=== PATIENT | female | born 1995 | race Asian ===

== ENCOUNTER 2017-11-19 16:50 | Emergency (ER) | payer OTHER ==
[2017-11-19] MEDS ORDERED: METOCLOPRAMIDE 10 MG/2 ML VIAL IVP ONE (17:18)
[2017-11-19] MEDS ORDERED: KETOROLAC 15 MG/1 ML SDV IVP ONE (17:18)
[2017-11-19] MEDS ORDERED: NS 1,000 ML IV ONE (17:18)
--- NOTE | 2017-11-19 17:20 | EDPHY ---
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 She reports that the headache started with mild nausea and then developed into headache. Onset of headache was gradual and has been fluctuating on and off for the last 6 days. She has no history of aneurysms. There was no trauma. She has no fever. She denies any neck pain or confusion or numbness or weakness or vision changes. She does report feeling slightly dizzy and endorses photophobia and phonophobia. She denies any abdominal pain or URI symptoms. She does report that approximately 3 years ago she experienced multiple headaches and her mother gave her Mexican traditional herbal medication and told her that she was anemic but she never did did see doctor about this or a neurologist. These headaches resolved and then approximately 2 years ago she had 2 head injuries and suffered from headaches for approximately a year after this but once again never saw a doctor. Her last migraine type headache was in December this year and self- resolved with Motrin. She takes no prescribed medication. She denies any drug use. She denies . REVIEW OF SYSTEMS: Constitutional: No fever, no chills. Eyes: No discharge. ENT: No sore throat. Cardiovascular: No chest pain, no palpitations. Respiratory: No cough, no shortness of breath. Gastrointestinal: No abdominal pain, no vomiting. Genitourinary: No hematuria. Musculoskeletal: No back pain. Skin: No rashes. Neurological: + headache. Smoking Status: Never smoked Physical Exam: General Appearance: Alert and no distress. Eyes: Pupils equal and round no injection. Respiratory: Chest is nontender, lungs are clear to auscultation. Cardiac: regular rate and rhythm. Gastrointestinal: Abdomen is soft and nontender, no masses, bowel sounds normal. Musculoskeletal: Neck is supple and nontender. Extremities have full range of motion and are nontender. Skin: No rashes or lesions. Neuro: Alert and oriented. No meningeal signs. Cranial nerves grossly intact. Ambulatory and moving all 4 extremities Constitutional: Initial Vital Signs Temperature (C) 36.7 C 11/19/17 16:53 Heart Rate 84 11/19/17 16:53 Respiratory Rate 18 11/19/17 16:53 Blood Pressure 124/78 H 11/19/17 16:53 O2 Sat (%) 97 11/19/17 16:53 O2 Delivery Mode Room Air Allergies/Adverse Reactions: No Known Allergies Allergy (Unverified 11/19/17 16:53) Home Medications: Medication Instructions Recorded NK [No Known Home Meds] 11/19/17 Medical Decision Making ED Course/Re-evaluation: 22-year-old female here with headache for the last 6 days. She does have extensive history of headaches including migraine type headache 3 years ago and a year of on and off headaches following a head injury 2 years ago. On exam today she is afebrile nontoxic. In is alert and oriented. She has no neurologic deficits. Labs reveal anemia which is secondary to her known thalassemia trait. Is no electrolyte disturbance or other acute findings on her labs today. She feels improved after IV migraine cocktail. She was referred to primary care doctor for further management of her anemia and migraines. I did consider subarachnoid hemorrhage, intracranial bleed, mass, acute anemia, trigeminal neuralgia, encephalitis - Data Points Laboratory Results: Laboratory Results 11/19/17 17:28 11/19/17 17:28 11/19/17 11/19/17 17:28 17:28 WBC 8.63 10^3/uL 10^3/uL (3.80-9.50) RBC 5.37 10^6/uL H 10^6/uL (4.18-5.33) Hgb 11.2 g/dL L g/dL (12.6-16.3) Hct 35.6 % L % (38.0-47.0) MCV 66.3 fL L fL (81.5-99.8) MCH 20.9 pg L pg (27.9-34.1) MCHC 31.5 g/dL L g/dL (32.4-36.7) RDW 17.0 % H % (11.5-15.2) Plt Count 249 10^3/uL 10^3/uL (150-400) MPV TNP Neut % (Auto) 65.3 % % (39.3-74.2) Lymph % (Auto) 24.9 % % (15.0-45.0) [place] % (Auto) 5.4 % % (4.5-13.0) Eos % (Auto) 3.4 % % (0.6-7.6) Baso % (Auto) 0.7 % % (0.3-1.7) Nucleat RBC Rel Count 0.0 % % (0.0-0.2) Absolute Neuts (auto) 5.63 10^3/uL 10^3/uL (1.70-6.50) Absolute Lymphs (auto) 2.15 10^3/uL 10^3/uL (1.00-3.00) Absolute Monos (auto) 0.47 10^3/uL 10^3/uL (0.30-0.80) Absolute Eos (auto) 0.29 10^3/uL 10^3/uL (0.03-0.40) Absolute Basos (auto) 0.06 10^3/uL 10^3/uL (0.02-0.10) Absolute Nucleated RBC 0.00 10^3/uL 10^3/uL (0-0.01) Immature Gran % 0.3 % % (0.0-1.1) Immature Gran # 0.03 10^3/uL 10^3/uL (0.00-0.10) Platelet Estimate Pending Polychromasia 1+ H Microcytic Cells 2+ H Elliptocytes 1+ H Acanthocytes (Spur) 1+ H Keratocytes 1+ H Smear Review By Pending Sodium 142 mEq/L mEq/L (135-145) Potassium 4.4 mEq/L mEq/L (3.3-5.0) Chloride 106 mEq/L mEq/L (97-110) Carbon Dioxide 25 mEq/l mEq/l (22-31) Anion Gap 11 mEq/L mEq/L (8-16) BUN 15 mg/dL mg/dL (7-23) Creatinine 0.7 mg/dL mg/dL (0.6-1.0) Estimated GFR > 60 Glucose 100 mg/dL mg/dL (70-100) Calcium 9.8 mg/dL mg/dL (8.5-10.4) Medications Given: Discontinued Medications Diphenhydramine HCl (Benadryl Injection) 12.5 mg IVP EDNOW ONE Stop: 11/19/17 17:19 Last Admin: 11/19/17 17:34 Dose: 12.5 mg Sodium Chloride (Ns) 1,000 mls @ 0 mls/hr IV EDNOW ONE; Wide Open PRN Reason: Protocol Stop: 11/19/17 17:19 Last Admin: 11/19/17 17:30 Dose: 1,000 mls Ketorolac Tromethamine (Toradol) 15 mg IVP EDNOW ONE Stop: 11/19/17 17:19 Last Admin: 11/19/17 17:32 Dose: 15 mg Metoclopramide HCl (Reglan Injection) 10 mg IVP ONCE ONE Stop: 11/19/17 17:19 Last Admin: 11/19/17 17:35 Dose: 10 mg Departure - Departure Disposition: Home, Routine, Self-Care Clinical Impression: Anemia, Headache Condition: Good Instructions: Acute Headache (DC), Anemia (ED) Additional Instructions: Follow-up with the primary care physician at the number listed below. Return to the ER for any worsening or worrisome symptoms. Referrals: Beena Meeks MD [Medical Doctor] - As per Instructions
[2017-11-19 18:03] LABS: PLATELET COUNT 249 10^3/uL (150-400)
[2017-11-19 18:32] VITALS: BP 111/83
== END 2017-11-19 18:34 | disposition home or self-care (01) ==
DX: R51 Headache (principal); D64.9 Anemia, unspecified; E86.9 Volume depletion, unspecified
CPT/HCPCS: 96374; J1200; J1885; J2765